=== PATIENT | female | born 1990 | race Caucasian/White ===

== ENCOUNTER 2016-12-17 13:39 | Emergency (ER) | payer OTHER ==
[~2016-12-17] VITALS: Ht 157.5 cm; Wt 56.2 kg
[2016-12-17 13:40] VITALS: BP 105/59
[2016-12-17] MEDS ORDERED: AMOXICILLIN500 M1 PO (15:12)
== END 2016-12-17 15:29 | disposition home or self-care (01) ==
LOC: ER 13:39
DX: J02.9 Acute pharyngitis, unspecified (principal)